=== PATIENT | female | born 1990 | race Caucasian/White ===

== ENCOUNTER 2018-06-23 00:36 | Inpatient (IN) | payer OTHER ==
[2018-06-23] MEDS ORDERED: ALBUTEROL/IPRATROPIUM (NEB) 3 ML AMP HHN (02:00)
[2018-06-23 02:22] LABS: ADD MAN DIFF? NO
[2018-06-23 02:24] LABS: WHITE BLOOD COUNT 5.1 10^3/ul (4.8-10.8)
[2018-06-23 02:24] LABS: BASOPHILS % 0.2 % (0.0-2.0); HEMATOCRIT 34.7 % (37.0-47.0); HEMOGLOBIN 11.5 g/dl (12.0-16.0); LYMPHOCYTES # 1.2 10^3/ul (0.8-2.9); LYMPHOCYTES % 24.1 % (15.0-51.0); MEAN CORPUSCULAR HEMOGLOBIN 28.6 pg (29.0-33.0); MEAN CORPUSCULAR HGB CONC 33.1 g/dl (32.0-37.0); MEAN CORPUSCULAR VOLUME 86.3 fl (82.0-101.0); MEAN PLATELET VOLUME 10.8 fl (7.4-10.4); MONOCYTE # 0.2 10^3/ul (0.3-0.9); MONOCYTES % 4.1 % (0.0-11.0); NEUTROPHIL # 3.7 10^3/ul (1.6-7.5); NEUTROPHILS % 71.4 % (39.0-77.0); PLATELET COUNT 142 10^3/UL (140-415); RED BLOOD COUNT 4.02 10^6/ul (4.20-5.40); RED CELL DISTRIBUTION WIDTH 11.3 % (11.5-14.5)
[2018-06-23 02:42] LABS: ALANINE AMINOTRANSFERASE 61 IU/L (13-69); ALBUMIN 3.6 g/dl (3.3-4.9); ALBUMIN/GLOBULIN RATIO 1.12; ALKALINE PHOSPHATASE 62 IU/L (42-121); ANION GAP 9 (5-13); ASPARTATE AMINO TRANSFERASE 60 IU/L (15-46); BILIRUBIN,INDIRECT 0.2 mg/dl (0-1.1); BILIRUBIN,TOTAL 0.2 mg/dl (0.2-1.3); BLOOD UREA NITROGEN 4 mg/dl (7-20); CALCIUM 8.4 mg/dl (8.4-10.2); CARBON DIOXIDE 24 mmol/L (21-31); CHLORIDE 105 mmol/L (97-110); CREATININE 0.75 mg/dl (0.44-1.00); Estimated GFR > 60 mL/min (>60); GLUCOSE 95 mg/dl (70-220); POTASSIUM 3.6 mmol/L (3.5-5.1); SODIUM 138 mmol/L (135-144); TOTAL PROTEIN 6.8 g/dl (6.1-8.1)
[2018-06-23] MEDS: SOD CHLORIDE 0.9% 1,000 ML IV ×2 (02:58→21:25)
[2018-06-23] MEDS: GUAIFENESIN/DM 5ML CUP PO ×3 (03:19→11:55)
[2018-06-23] MEDS: ACETAMINOPHEN 325 MG TAB PO ×2 (03:19→20:13)
[2018-06-23] MEDS: ALBUTEROL/IPRATROPIUM (NEB) 3 ML AMP HHN ×4 (03:56→19:59)
[2018-06-23] MEDS: PANTOPRAZOLE (EC) 40 MG TAB PO (05:40)
[2018-06-23] MEDS: ENOXAPARIN 40 MG/0.4 ML SYG SC (11:30)
[2018-06-23] MEDS: PROMETHAZINE (1.25 MG/ML) 5 ML CUP PO (17:14)
[2018-06-23] MEDS: CEFTRIAXONE 1 GM/50 ML (PMX) 50 ML IVPB (17:50)
[2018-06-23] MEDS: AZITHROMYCIN 250 MG in SOD CHLORIDE 0.9% 250 ML IVPB (20:13)
[2018-06-24] MEDS: ALBUTEROL/IPRATROPIUM (NEB) 3 ML AMP HHN ×4 (01:31→21:40)
[2018-06-24] MEDS: GUAIFENESIN/DM 5ML CUP PO ×2 (01:44→16:19)
[2018-06-24] MEDS: PROMETHAZINE (1.25 MG/ML) 5 ML CUP PO ×4 (01:48→20:31)
[2018-06-24 06:02] LABS: WHITE BLOOD COUNT 4.3 10^3/ul (4.8-10.8)
[2018-06-24 06:02] LABS: ADD MAN DIFF? NO; BASOPHILS % 0.2 % (0.0-2.0); EOSINOPHILS % 0.5 % (0.0-7.0); HEMATOCRIT 33.9 % (37.0-47.0); HEMOGLOBIN 11.2 g/dl (12.0-16.0); LYMPHOCYTES # 1.5 10^3/ul (0.8-2.9); LYMPHOCYTES % 34.1 % (15.0-51.0); MEAN CORPUSCULAR HEMOGLOBIN 28.6 pg (29.0-33.0); MEAN CORPUSCULAR VOLUME 86.5 fl (82.0-101.0); MEAN PLATELET VOLUME 10.9 fl (7.4-10.4); MONOCYTE # 0.2 10^3/ul (0.3-0.9); MONOCYTES % 5.1 % (0.0-11.0); NEUTROPHIL # 2.6 10^3/ul (1.6-7.5); NEUTROPHILS % 59.9 % (39.0-77.0); PLATELET COUNT 149 10^3/UL (140-415); RED BLOOD COUNT 3.92 10^6/ul (4.20-5.40); RED CELL DISTRIBUTION WIDTH 11.6 % (11.5-14.5)
[2018-06-24] MEDS: PANTOPRAZOLE (EC) 40 MG TAB PO (06:10)
[2018-06-24 06:37] LABS: ANION GAP 10 (5-13); BLOOD UREA NITROGEN 4 mg/dl (7-20); CALCIUM 8.8 mg/dl (8.4-10.2); CARBON DIOXIDE 24 mmol/L (21-31); CHLORIDE 107 mmol/L (97-110); CREATININE 0.63 mg/dl (0.44-1.00); Estimated GFR > 60 mL/min (>60); GLUCOSE 99 mg/dl (70-220); POTASSIUM 3.2 mmol/L (3.5-5.1); SODIUM 141 mmol/L (135-144)
[2018-06-24] MEDS: ACETAMINOPHEN 325 MG TAB PO (08:47)
[2018-06-24] MEDS: ENOXAPARIN 40 MG/0.4 ML SYG SC (08:52)
[2018-06-24] MEDS: POTASSIUM CHLORIDE 20 MEQ POWDER FOR ORAL SOLN PO (14:11)
[2018-06-24] MEDS: SOD CHLORIDE 0.9% 1,000 ML IV (16:11)
[2018-06-24] MEDS: CEFTRIAXONE 1 GM/50 ML (PMX) 50 ML IVPB (17:33)
[2018-06-24] MEDS: AZITHROMYCIN 250 MG in SOD CHLORIDE 0.9% 250 ML IVPB (20:31)
[2018-06-25] MEDS: GUAIFENESIN/DM 5ML CUP PO ×2 (01:43→11:15)
[2018-06-25] MEDS: ALBUTEROL/IPRATROPIUM (NEB) 3 ML AMP HHN ×4 (02:36→20:30)
[2018-06-25] MEDS: PANTOPRAZOLE (EC) 40 MG TAB PO (05:04)
[2018-06-25] MEDS: PROMETHAZINE (1.25 MG/ML) 5 ML CUP PO ×3 (05:04→20:50)
[2018-06-25 07:50] LABS: ADD MAN DIFF? NO
[2018-06-25 07:52] LABS: BASOPHILS % 0.3 % (0.0-2.0); EOSINOPHILS # 0.1 10^3/ul (0.0-0.5); EOSINOPHILS % 2.3 % (0.0-7.0); HEMATOCRIT 34.7 % (37.0-47.0); HEMOGLOBIN 11.4 g/dl (12.0-16.0); LYMPHOCYTES # 1.9 10^3/ul (0.8-2.9); LYMPHOCYTES % 46.6 % (15.0-51.0); MEAN CORPUSCULAR HEMOGLOBIN 28.6 pg (29.0-33.0); MEAN CORPUSCULAR HGB CONC 32.9 g/dl (32.0-37.0); MEAN PLATELET VOLUME 10.7 fl (7.4-10.4); MONOCYTE # 0.3 10^3/ul (0.3-0.9); MONOCYTES % 8.3 % (0.0-11.0); NEUTROPHIL # 1.7 10^3/ul (1.6-7.5); PLATELET COUNT 185 10^3/UL (140-415); RED BLOOD COUNT 3.99 10^6/ul (4.20-5.40); RED CELL DISTRIBUTION WIDTH 11.8 % (11.5-14.5)
[2018-06-25 08:16] LABS: ANION GAP 12 (5-13); BLOOD UREA NITROGEN 4 mg/dl (7-20); CALCIUM 8.9 mg/dl (8.4-10.2); CARBON DIOXIDE 27 mmol/L (21-31); CHLORIDE 103 mmol/L (97-110); CREATININE 0.61 mg/dl (0.44-1.00); Estimated GFR > 60 mL/min (>60); GLUCOSE 92 mg/dl (70-220); POTASSIUM 3.9 mmol/L (3.5-5.1); SODIUM 142 mmol/L (135-144)
[2018-06-25] MEDS: ENOXAPARIN 40 MG/0.4 ML SYG SC (09:00)
[2018-06-25] MEDS: SOD CHLORIDE 0.9% 1,000 ML IV (14:00)
[2018-06-25] MEDS: POLYSACCHARIDE IRON COMPLEX CAP PO ×2 (15:04→20:54)
[2018-06-25] MEDS: CEFTRIAXONE 1 GM/50 ML (PMX) 50 ML IVPB (18:11)
[2018-06-25] MEDS: AZITHROMYCIN 250 MG in SOD CHLORIDE 0.9% 250 ML IVPB (20:50)
[2018-06-25] MEDS: ONDANSETRON 4 MG INJ IV (20:50)
[2018-06-26] MEDS: ALBUTEROL/IPRATROPIUM (NEB) 3 ML AMP HHN ×4 (02:00→20:22)
[2018-06-26] MEDS: PANTOPRAZOLE (EC) 40 MG TAB PO (05:49)
[2018-06-26 06:34] LABS: HEMOGLOBIN 11.9 g/dl (12.0-16.0); MEAN CORPUSCULAR HEMOGLOBIN 28.8 pg (29.0-33.0); MEAN CORPUSCULAR HGB CONC 33.1 g/dl (32.0-37.0); MEAN CORPUSCULAR VOLUME 87.2 fl (82.0-101.0); MEAN PLATELET VOLUME 10.7 fl (7.4-10.4); PLATELET COUNT 220 10^3/UL (140-415); RED BLOOD COUNT 4.13 10^6/ul (4.20-5.40); RED CELL DISTRIBUTION WIDTH 11.7 % (11.5-14.5)
[2018-06-26 06:37] LABS: POSITIVE DIFF @See below
[2018-06-26 06:38] LABS: ADD MAN DIFF? YES
[2018-06-26 07:43] LABS: BAND NEUTROPHILS % (M) 1 % (0-4); EOSINOPHILS % (M) 6 % (0-7); GIANT THROMBO% (M) 8 % (0-0); LYMPHOCYTES #M 1.7 10^3/ul (0.8-2.9); LYMPHOCYTES % (M) 43 % (15-51); MONOCYTE #M 0.4 10^3/ul (0.3-0.9); MONOCYTES % (M) 10 % (0-11); PLASMAC%(M) 1 % (0); PLATELET ESTIMATE NORMAL; REACTIVE LYMPHOCYTES #M 0.2 10^3/ul (0.0-0.0); REACTIVE LYMPHOCYTES% (M) 5 % (0-0); SEG NEUT #M 1.4 10^3/ul (1.6-7.5); SEGMENTED NEUTROPHILS (M) % 34 % (39-77); SMUDGE%M 11 % (0-0)
[2018-06-26] MEDS: POLYSACCHARIDE IRON COMPLEX CAP PO ×2 (08:52→21:02)
[2018-06-26] MEDS: ENOXAPARIN 40 MG/0.4 ML SYG SC (09:00)
[2018-06-26] MEDS: ACETAMINOPHEN 325 MG TAB PO (10:30)
[2018-06-26] MEDS: PROMETHAZINE (1.25 MG/ML) 5 ML CUP PO ×2 (14:33→20:35)
[2018-06-26] MEDS: LEVOFLOXACIN 500 MG TAB PO (14:33)
[2018-06-27] MEDS: ALBUTEROL/IPRATROPIUM (NEB) 3 ML AMP HHN ×3 (02:13→14:20)
[2018-06-27] MEDS: LEVOFLOXACIN 500 MG TAB PO (05:53)
[2018-06-27] MEDS: PANTOPRAZOLE (EC) 40 MG TAB PO (05:54)
[2018-06-27] MEDS: ENOXAPARIN 40 MG/0.4 ML SYG SC (09:00)
[2018-06-27] MEDS: POLYSACCHARIDE IRON COMPLEX CAP PO (09:26)
== END 2018-06-27 18:30 | disposition home or self-care (01) | DRG 871 ==
LOC: 6WM 00:36 → PP2 06-25 → 6WM 01:07
DX: A41.9 Sepsis, unspecified organism (principal); J18.9 Pneumonia, unspecified organism; D64.9 Anemia, unspecified; E87.6 Hypokalemia; E66.9 Obesity, unspecified; N39.3 Stress incontinence (female) (male); R19.7 Diarrhea, unspecified; R74.8 Abnormal levels of other serum enzymes; Z68.36 Body mass index [BMI] 36.0-36.9, adult
CPT/HCPCS: 71045; 80048; 80053; 85025; 87040; 87070; 87075; 87081; 87400; 94640; 94664